=== PATIENT | female | born 1975 | race Two or more races ===

== ENCOUNTER 2023-08-14 09:08 | Outpatient (CLI) | payer OTHER | END 2023-08-14 09:18 | disposition home or self-care (01) | LOC: MAMO-SONO 09:08 | PROVIDERS: ATTEND Obstetrics & Gynecology | DX: N60.11 Diffuse cystic mastopathy of right breast (principal); N60.12 Diffuse cystic mastopathy of left breast; Z12.31 Encounter for screening mammogram for malignant neoplasm of breast ==

== ENCOUNTER 2023-11-19 14:43 | Outpatient (CLI) | payer OTHER | END 2023-11-19 15:04 | disposition home or self-care (01) | LOC: TOM 14:43 | PROVIDERS: ATTEND Obstetrics & Gynecology | DX: R51.9 Headache, unspecified (principal); N93.9 Abnormal uterine and vaginal bleeding, unspecified ==

== ENCOUNTER → 2025-02-13 | Emergency (ER) | payer OTHER ==
[~2025-02-13] VITALS: Ht 160 cm; Wt 67.1 kg
[~2025-02-13] MED LIST: 0.9 % SODIUM CHLORIDE 1,000 ML IV ONE; FAMOTIDINE/PF 20 MG/2 ML VIAL IV PUSH STA; FAMOTIDINE/PF 20 MG/2 ML VIAL ONE; HYOSCYAMINE SULFATE 0.125 MG TAB.SUBL ONE; HYOSCYAMINE SULFATE 0.125 MG TAB.SUBL SL STA; INTESTINEX680 M2 PO; LACTOBACILLUS ACIDOPHILUS 1 CAP CAP PO ONE; LACTOBACILLUS ACIDOPHILUS 1 CAP CAP PO STA; ONDANSETRON HCL 2 MG/ML VIAL IV STA; ONDANSETRON HCL 2 MG/ML VIAL ONE; PEPCID40 MG PO; ZOFRAN8 MG PO
[2025-02-14 02:13] LABS: BASO % 0.4 % (0.1-1.2); EOS # 0.16 (0.04-0.54); EOS % 1.4 % (0.7-7.0); HEMATOCRIT 42.7 % (34.1-44.9); LYMPH # 2.24 (1.18-3.74); LYMPH % 20.1 % (19.3-53.1); MONO # 1.06 (0.24-0.82); MONO % 9.5 % (4.7-12.5); NEUT % 68.3 % (34.0-71.1); PLATELET COUNT 368 K/uL (163-369); RED BLOOD COUNT 4.67 M/uL (3.93-5.22); RED CELL DISTRIBUTION WIDTH 12.7 % (11.6-14.4)
[2025-02-14 02:18] LABS: URINE APPEARANCE Clear; URINE BILIRRUBIN Negative (NEGATIVE); URINE BLOOD Small; URINE COLOR Yellow; URINE GLUCOSE Negative (NEGATIVE); URINE KETONE Negative (NEGATIVE); URINE LEUKOCYTE Negative; URINE NITRATE Negative; URINE PROTEIN Negative (NEGATIVE); URINE UROBILINOGEN 0.2 E.U./dl
[2025-02-14 02:21] LABS: URINE BACTERIA 174.8 uL (0.0-1933); URINE EPITHELIAL CELLS 3.9 uL (0.0-38.8); URINE RBC 11.1 uL (0.0-20.8)
[2025-02-14 02:39] LABS: CREATININE SERUM 0.62 mg/dL (0.55-1.02); GFR 101.48; POTASSIUM 3.1 mEq/L (3.5-5.1)
[2025-02-14 02:39] LABS: URINE WBC 0.9 uL (0.0-23.2)
== END | disposition home or self-care (01) ==
LOC: ER 23:42
PROVIDERS: General Practice
DX: R19.7 Diarrhea, unspecified (principal); R11.0 Nausea; Z88.6 Allergy status to analgesic agent; Z91.011 Allergy to milk products

== ENCOUNTER → 2025-04-27 | Outpatient (CLI) | payer OTHER ==
[~2025-04-27] MED LIST changes: -0.9 % SODIUM CHLORIDE 1,000 ML IV ONE; -FAMOTIDINE/PF 20 MG/2 ML VIAL IV PUSH STA; -FAMOTIDINE/PF 20 MG/2 ML VIAL ONE; -HYOSCYAMINE SULFATE 0.125 MG TAB.SUBL ONE; -HYOSCYAMINE SULFATE 0.125 MG TAB.SUBL SL STA; -LACTOBACILLUS ACIDOPHILUS 1 CAP CAP PO ONE; -LACTOBACILLUS ACIDOPHILUS 1 CAP CAP PO STA; -ONDANSETRON HCL 2 MG/ML VIAL IV STA; -ONDANSETRON HCL 2 MG/ML VIAL ONE
== END | disposition home or self-care (01) ==
LOC: MAMO-SONO 09:18
PROVIDERS: ATTEND Obstetrics & Gynecology
DX: N60.11 Diffuse cystic mastopathy of right breast (principal); N60.12 Diffuse cystic mastopathy of left breast